=== PATIENT | male | born 1990 | race Caucasian/White ===

== ENCOUNTER 2020-11-22 02:06 | Emergency (ER) | payer OTHER, SELFPAY ==
--- NOTE | ~2020-11-22 | XR_ITS ---
EXAMINATION: XR CHEST CLINICAL INFORMATION: Chest pain COMPARISON: 03/14/2019 TECHNIQUE: Frontal view of the chest was obtained. FINDINGS: Normal symmetric lung volumes. No parenchymal consolidation. No pleural effusion. No pneumothorax. Cardiomediastinal silhouette and pulmonary vascularity are within normal limits. No acute osseous abnormalities. XR/XR chest 1V IMPRESSION: Unremarkable examination.
[2020-11-22 02:57] VITALS: BP 146/82; PULSE 72; RESP 18; TEMP 36.5; O2SAT 100; BMI 23.5
--- NOTE | 2020-11-22 03:06 | ED.CHESTPAIN ---
HPI - Chest Pain General Chief Complaint: Chest Pain Stated Complaint: CHEST PAIN Time Seen by Provider: 11/22/20 02:52 Source: patient Mode of arrival: ambulatory History of Present Illness HPI narrative: This is a 30-year-old male who presents with 2 days right anterior chest wall pain without history of recent travel, palpitations and states that this pain travels into his right upper extremity. He denies any association with recent exercise regimen, denies trauma, denies recent cough, fevers, chills and denies any association with deep inspiration. The pain is reproducible on palpation and patient's primary concern is that ?this is making him nervous?. Related Data Allergies Allergy/AdvReac Type Severity Reaction Status Date / Time beeswax [BEESWAX] Allergy Unknown SWELLING Unverified 05/02/20 15:58 Review of Systems Review of Systems: Pertinent positives and negatives as stated in HPI 10 point review systems is otherwise negative. [facility] Past Medical History Source: nursing notes reviewed Medical History Asthma Social History Social History Alcohol intake: never Smoking Status: Never smoker Use of substances other than those prescribed or required for medical reasons: No Advance Directives: No Physical Exam Vital Signs: Vital Signs: Last Vital Signs Temp 97.7 F 11/22/20 02:57 Pulse 66 11/22/20 04:28 Resp 13 11/22/20 04:28 BP 125/76 11/22/20 04:28 Pulse Ox 97 11/22/20 04:28 Body Mass Index 23.5 VITAL SIGNS: Reviewed. GENERAL: Well developed, well nourished, in no acute distress. HEAD: Normocephalic/atraumatic EYES: PERRLA, EOMI OROPHARYNX: no oral lesions noted, posterior pharynx clear NECK: Supple, no adenopathy LUNGS: Normal breath sounds. SpO2<100> CHEST WALL: Reproducible pain on palpation over right parasternal pectoral muscle without palpable mass CARDIOVASCULAR: Regular rate and rhythm without noted murmurs ABDOMEN: Soft, non-tender, non-distended with bowel sounds. NEUROLOGIC: Alert and oriented x 4. Course Course Course Narrative: This is a 30-year-old male with history and clinical presentation most consistent with musculoskeletal pain, but will rule out cardiopulmonary/PE etiologies. Review of all investigations is negative for any acute findings to suggest evidence of PE, cardiac ischemia, pneumonia. All results and findings were discussed with patient bedside and he was discharged to home in stable condition with the presumptive diagnosis of chest wall muscle strain. MDM - Chest Pain Lab Data Labs: Lab Results 11/22/20 11/22/20 Range/Units 03:49 03:49 D-Dimer < 200 NG/ML Troponin I High Sens < 3.5 (<3.5-35.0) ng/L ECG Data ECG #1: Attestation: I personally reviewed and interpreted this ECG as follows: Prior ECG tracings: not available for review Interpretation: Normal sinus rhythm, HR-76, no evidence of acute ischemia, UT/QRS/QTC within normal limits. Discharge Plan Discharge Clinical Impression: Chest wall muscle strain Qualifiers: Encounter type: initial encounter Qualified Code(s): S29.011A - Strain of muscle and tendon of front wall of thorax, initial encounter Patient Disposition: Home, Self-Care Instructions: Muscle Strain (ED), Chest Wall Pain (ED) Additional Instructions: Please follow-up with your primary care provider in the next 2-3 days for re-evaluation. Do not hesitate to return to the emergency department for any acute worsening of her symptoms. Referrals: Physician,None [Primary Care Provider] - 2 days
[2020-11-22] MEDS: Acetaminophen 325 MG TABLET 975 MG PO (03:17)
[2020-11-22] MEDS: Lidocaine HCl Viscous 2 % 15 ML SOLUTION 10 ML MUCOUS MEM (03:18)
[2020-11-22] MEDS: Lidocaine 4 % Patch ADH..PATCH 1 PATCH TRANSDERMA (03:18)
[2020-11-22] MEDS: Ketorolac Tromethamine 15 MG/ML VIAL IM (03:19)
[2020-11-22] MEDS: Magnesium Hydrox/Alum Hydrox 30 ML ORAL.SUSP PO (03:19)
[2020-11-22 04:18] LABS: D Dimer < 200 NG/ML
[2020-11-22 04:21] LABS: Troponin-I High Sensitivity < 3.5 ng/L (<3.5-35.0)
--- NOTE | 2020-11-22 04:23 | PC.NURSE ---
Pt states his chest and arm pain has been resolved. the only time he has pain to the chest is when he coughs and is on rare occassion.
[2020-11-22 04:28] VITALS: BP 125/76; PULSE 66; RESP 13; O2SAT 97
--- NOTE | 2020-11-22 08:53 | ECG_ITS ---
Test Reason : CHEST PAIN Blood Pressure : / mmHG Vent. Rate : 076 BPM Atrial Rate : 076 BPM P-R Int : 128 ms QRS Dur : 090 ms QT Int : 362 ms P-R-T Axes : 077 089 072 degrees QTc Int : 407 ms Normal sinus rhythm with sinus arrhythmia Normal ECG When compared with ECG of 14-MAR-2019 22:29, No significant change was found Referred By: Madyson Lackey Electronically Signed By:TONE CONCEPCION
== END 2020-11-22 04:53 | disposition home or self-care (01) ==
PROVIDERS: Emergency Provider Student in an Organized Health Care Education/Training Program
DX: S29.011A Strain of muscle and tendon of front wall of thorax, initial encounter (principal); R07.2 Precordial pain; X58.XXXA Exposure to other specified factors, initial encounter; Y93.9 Activity, unspecified; Y92.9 Unspecified place or not applicable; Y99.9 Unspecified external cause status
CPT/HCPCS: 36415; 71045; 84484; 85379; 93005; 96372; 99284; J1885